=== PATIENT | female | born 2000 | race Caucasian/White ===

== ENCOUNTER 2020-02-27 20:06 | Emergency (ER) | payer BC ==
--- NOTE | 2020-02-27 20:59 | ER Document Report ---
ED ENT - General Chief Complaint: Sore Throat Stated Complaint: SORE THROAT Time Seen by Provider: 02/27/20 20:22 Primary Care Provider: MYRA ESCAMILLA MD [COMMUNITY BASED STAFF] - Follow up as needed Mode of Arrival: Ambulatory Information source: Patient Notes: 19-year-old female with no previous medical problems presents to the emergency room complaining of a sore throat left-sided ear pain painful to swallow that started earlier today. Denies any fevers. States she took some Excedrin with some relief. Eating and drinking normally. No recent swimming or flying. Denies . No ill contacts. No recent travel. No COVID-19 exposure. TRAVEL OUTSIDE OF THE [place] IN LAST 30 DAYS: No - Related Data Allergies/Adverse Reactions: No Known Allergies Allergy (Verified 02/27/20 20:33) Past Medical History - General Information source: Patient - Social History Smoking Status: Never Smoker Frequency of alcohol use: None Drug Abuse: None Family History: Reviewed & Not Pertinent Patient has homicidal ideation: No Review of Systems - Review of Systems Constitutional: No symptoms reported EENT: Ear pain, Throat pain Cardiovascular: No symptoms reported Respiratory: No symptoms reported Gastrointestinal: No symptoms reported Female Genitourinary: No symptoms reported Musculoskeletal: No symptoms reported Skin: No symptoms reported Neurological/Psychological: No symptoms reported -: Yes All other systems reviewed and negative Physical Exam - Vital signs Vitals: Temp Pulse Resp BP Pulse Ox 99.8 F 96 18 96/78 L 100 02/27/20 20:16 02/27/20 20:16 02/27/20 20:16 02/27/20 20:16 02/27/20 20:16 - General General appearance: Appears well, Alert In distress: Mild - HEENT Head: Normocephalic, Atraumatic Eyes: Normal Cornea: Normal Pupils: PERRL Ears: Normal External canal: Normal Tympanic membrane: Injected, Other - Left tympanic membrane dull, retracted with clear fluid noted behind the tympanic membrane. Left outer ear canal without erythema or swelling. Right tympanic membrane intact without erythema erythema or swelling. Right outer ear canal without erythema or swelling. Sinus: Normal Nasal: Normal Pharynx: Normal Neck: Normal - Respiratory Respiratory status: No respiratory distress Chest status: Nontender Breath sounds: Normal Chest palpation: Normal - Cardiovascular Rhythm: Regular Heart sounds: Normal auscultation Murmur: No - Neurological Neuro grossly intact: Yes Cognition: Normal Orientation: AAOx4 Edgardo Coma Scale Eye Opening: Spontaneous [place] Coma Scale Verbal: Oriented Edgardo Coma Scale Motor: Obeys Commands Edgardo Coma Scale Total: 15 Speech: Normal Motor strength normal: LUE, RUE, LLE, RLE Sensory: Normal - Skin Skin Temperature: Warm Skin Moisture: Dry Skin Color: Normal Course - Re-evaluation Re-evalutation: 02/27/20 20:56 Reviewed negative strep results with patient. Counseled on left eustachian tube dysfunction. Use nasal spray as prescribed. Supportive therapy. Will be notified if her throat culture comes back positive and requires treatment outpatient follow-up with primary care physician if not improving in 2 to 3 days. On-call physician was provided. Patient was given strict return to the emergency room guidelines. Return for any new or worsening symptoms. All questions were answered. Patient verbalized understanding and agrees with plan of care. - Vital Signs Vital signs: Temp Pulse Resp BP Pulse Ox 100.0 F 93 18 132/88 H 100 02/27/20 21:20 02/27/20 21:20 02/27/20 20:16 02/27/20 21:20 02/27/20 21:20 Discharge - Discharge Clinical Impression: Dysfunction of left eustachian tube Acute pharyngitis Qualifiers: Pharyngitis/tonsillitis etiology: unspecified etiology Qualified Code(s): J02.9 - Acute pharyngitis, unspecified URI (upper respiratory infection) Qualifiers: URI type: unspecified URI Qualified Code(s): J06.9 - Acute upper respiratory infection, unspecified Condition: Stable Disposition: HOME, SELF-CARE Instructions: Sore Throat ([facility]), Upper Respiratory Illness ([facility]) Additional Instructions: Use nasal spray as prescribed. Tylenol and or Motrin for fever and/or pain. Patient follow-up with the primary care physician if not improving in 2 to 3 days. On-call physician was provided. Return to the emergency room for any new or worsening symptoms. Prescriptions: Fluticasone Propionate [Flonase Nasal Powderhorn 50 Mcg/Powderhorn 16 gm] 2 spray NASL DAILY #1 inhaler Referrals: MYRA ESCAMILLA MD [COMMUNITY BASED STAFF] - Follow up as needed
[2020-02-27 21:21] VITALS: BP 132/88
== END 2020-02-27 21:21 | disposition home or self-care (01) ==
LOC: ER 20:06
DX: H69.92 Unspecified Eustachian tube disorder, left ear (principal); J02.9 Acute pharyngitis, unspecified; H92.02 Otalgia, left ear; R13.10 Dysphagia, unspecified
CPT/HCPCS: 87070; 87077; 87880; 99283